=== PATIENT | female | born 1950 | race Caucasian/White ===

== ENCOUNTER 2016-11-04 18:45 | Emergency (ER) | payer MEDICARE, OTHER ==
[~2016-11-04] VITALS: Ht 149.9 cm; Wt 99.8 kg
[~2016-11-04 18:45] MED LIST: DOCU-94 PO; FLUT250M2 IN; IBUP800T24 PO; LISI40TA PO; MONT10TA23 PO; PAR20T PO; PROAIR; SIMV-13 PO
[2016-11-04 19:47] LABS: Basophils # (auto) 0 uL; Basophils % (auto) 0.3 % (0.0-2.0); Eosinophils # (auto) 0 uL; Eosinophils % (auto) 0.1 % (0.0-7.0); Hematocrit 41.5 % (36.0-46.0); Hemoglobin 13.2 g/dL (12.2-16.2); Lymphocytes # (auto) 1.4 uL; Lymphocytes % (auto) 19.7 % (10.0-50.0); Mean Corpuscular Hgb Conc. 31.8 g/dL (32.0-36.0); Monocytes # (auto) 0.6 uL; Neutrophils # (auto) 5.2 uL; Neutrophils % (auto) 71.9 % (37.0-80.0); Platelet Count (auto) 253 10^3/uL (140-450); Red Cell Distribution Width 17.8 % (11.6-16.0); White Blood Cell 7.2 10^3/uL (4.4-10.8)
[2016-11-04 20:05] LABS: Albumin 3.5 g/dL (3.4-5.0); BUN/Creatinine Ratio 22.2; Calcium 8.1 mg/dL (8.5-10.1); Magnesium 2.5 mg/dL (1.6-2.6)
[2016-11-04 20:08] LABS: Bilirubin, Total 0.1 mg/dL (0.2-1.0); Total Protein 6.7 g/dL (6.4-8.2)
[2016-11-05 02:15] VITALS: BP 112/44
== END 2016-11-05 02:59 | disposition home or self-care (01) ==
LOC: EDUNIT# 18:45 → EDBD 18:45 → ER 18:49
DX: R07.89 Other chest pain (principal); M79.602 Pain in left arm; I25.10 Atherosclerotic heart disease of native coronary artery without angina pectoris; J44.9 Chronic obstructive pulmonary disease, unspecified; I10 Essential (primary) hypertension; E11.9 Type 2 diabetes mellitus without complications; M19.90 Unspecified osteoarthritis, unspecified site; J45.909 Unspecified asthma, uncomplicated; F32.9 Major depressive disorder, single episode, unspecified; F41.9 Anxiety disorder, unspecified; E78.5 Hyperlipidemia, unspecified; Z90.49 Acquired absence of other specified parts of digestive tract; Z90.710 Acquired absence of both cervix and uterus; Z95.0 Presence of cardiac pacemaker; Z87.891 Personal history of nicotine dependence
CPT/HCPCS: 36415; 80053; 83735; 84484; 85025; 93005

== ENCOUNTER 2017-06-23 18:07 | Emergency (ER) | payer MEDICARE, MEDICAID ==
[~2017-06-23] VITALS: Ht 149.9 cm; Wt 115.7 kg
[2017-06-23 19:35] LABS: Basophils # (auto) 0 uL; Basophils % (auto) 0.3 % (0.0-2.0); CONDITION Y; DEFINITIVE SEE PRINTOUT; Eosinophils # (auto) 0 uL; Hematocrit 35.4 % (36.0-46.0); Hemoglobin 11.3 g/dL (12.2-16.2); Lymphocytes # (auto) 1.2 uL; Lymphocytes % (auto) 19.5 % (10.0-50.0); Mean Corpuscular Hemoglobin 26.6 pg (28.0-32.0); Mean Corpuscular Volume 83.1 fL (80.0-100.0); Mean Platelet Volume 7.8 fL (7.4-10.4); Monocytes # (auto) 0.6 uL; Monocytes % (auto) 9.6 % (0.0-12.0); Neutrophils # (auto) 4.5 uL; Neutrophils % (auto) 70.6 % (37.0-80.0); Platelet Count (auto) 310 10^3/uL (140-450); Red Cell Distribution Width 17.6 % (11.6-16.0); White Blood Cell 6.4 10^3/uL (4.4-10.8)
[2017-06-23 19:50] LABS: Partial Thromboplastin Time 26.9 sec (22.64-33.71); Prothrombin Time 10.9 sec (9.37-12.3)
[2017-06-23 19:53] LABS: Albumin 3.3 g/dL (3.4-5.0); Anion Gap 10 (5-15); Aspartate Aminotransferase 12 U/L (15-37); BUN/Creatinine Ratio 20.3; Blood Urea Nitrogen 16 mg/dL (7-18); Calcium 7.9 mg/dL (8.5-10.1); Carbon Dioxide 24 mmol/L (21-32); Chloride 110 mmol/L (98-107); GFR African American 94 mL/min; GFR Non-African American 77 mL/min; Glucose 112 mg/dL (74-106); Magnesium 2.4 mg/dL (1.6-2.6); Potassium 4.1 mmol/L (3.5-5.1); Sodium 144 mmol/L (136-145)
[2017-06-23 19:58] LABS: Alkaline Phosphatase 202 U/L (45-117); Bilirubin, Total 0.2 mg/dL (0.2-1.0); Total Protein 6.7 g/dL (6.4-8.2)
[2017-06-23 20:01] LABS: B-Type Natriuretic Peptide 19.44 pg/mL (0-100)
[2017-06-23 20:10] LABS: Temperature: 23.5 C (20.0-25.0)
[2017-06-23] MEDS ORDERED: MORPHINE SULFATE 4 MG/ML SYRG IV ONE (22:30)
[2017-06-23] MEDS ORDERED: ONDANSETRON HCL 4 MG/2 ML VIAL IV ONE (22:30)
[2017-06-24 02:17] VITALS: BP 135/75
[2017-06-26] MEDS ORDERED: OXY5T PO (11:26)
[2017-06-26] MEDS ORDERED: FAMO-12 PO (11:26)
[2017-06-26] MEDS ORDERED: MOMLQ PO (11:26)
[2017-06-26] MEDS ORDERED: RIVA10TA PO (11:26)
[2017-06-26] MEDS ORDERED: PHE100C PO (11:26)
[2017-06-26] MEDS ORDERED: METF-370 PO (11:26)
[2017-06-26] MEDS ORDERED: BIS10RS PR (11:26)
== END 2017-06-24 03:44 | disposition home or self-care (01) ==
LOC: EDBD 18:07 → ER 18:10
DX: R07.89 Other chest pain (principal); F41.9 Anxiety disorder, unspecified; M19.90 Unspecified osteoarthritis, unspecified site; J44.9 Chronic obstructive pulmonary disease, unspecified; E11.9 Type 2 diabetes mellitus without complications; E78.5 Hyperlipidemia, unspecified; I10 Essential (primary) hypertension; Z90.49 Acquired absence of other specified parts of digestive tract; Z95.1 Presence of aortocoronary bypass graft; I25.810 Atherosclerosis of coronary artery bypass graft(s) without angina pectoris; Z95.0 Presence of cardiac pacemaker
CPT/HCPCS: 36415; 71010; 80053; 83735; 83880; 84484; 85025; 85379; 85610; 85730; 93005; J2405

== ENCOUNTER 2017-07-09 04:41 | Emergency (ER) | payer MEDICARE, MEDICAID ==
[~2017-07-09] VITALS: Ht 149.9 cm; Wt 111.1 kg
[~2017-07-09 04:41] MED LIST changes: +BIS10RS PR; +FAMO-12 PO; +IBU600T PO; -IBUP800T24 PO; +METF-370 PO; +MOMLQ PO; +PHE100C PO; -PROAIR; +RIVA10TA PO
[2017-07-09 05:32] LABS: Basophils # (auto) 0 uL; Basophils % (auto) 0.4 % (0.0-2.0); CONDITION Y; DEFINITIVE SEE PRINTOUT; Eosinophils # (auto) 0 uL; Hematocrit 35.4 % (36.0-46.0); Hemoglobin 11.5 g/dL (12.2-16.2); Lymphocytes # (auto) 1.1 uL; Lymphocytes % (auto) 19.2 % (10.0-50.0); Mean Corpuscular Hemoglobin 26.6 pg (28.0-32.0); Mean Corpuscular Hgb Conc. 32.5 g/dL (32.0-36.0); Mean Corpuscular Volume 81.9 fL (80.0-100.0); Mean Platelet Volume 7.9 fL (7.4-10.4); Monocytes # (auto) 0.6 uL; Monocytes % (auto) 9.8 % (0.0-12.0); Neutrophils % (auto) 70.6 % (37.0-80.0); Platelet Count (auto) 303 10^3/uL (140-450); Red Cell Distribution Width 18.8 % (11.6-16.0); White Blood Cell 5.7 10^3/uL (4.4-10.8)
[2017-07-09 05:54] LABS: Albumin 3.3 g/dL (3.4-5.0); Anion Gap 10 (5-15); Aspartate Aminotransferase 17 U/L (15-37); BUN/Creatinine Ratio 21.4; Blood Urea Nitrogen 12 mg/dL (7-18); Calcium 8.3 mg/dL (8.5-10.1); Carbon Dioxide 25 mmol/L (21-32); Chloride 112 mmol/L (98-107); GFR African American 139 mL/min; GFR Non-African American 115 mL/min; Glucose 103 mg/dL (74-106); Potassium 3.7 mmol/L (3.5-5.1); Sodium 147 mmol/L (136-145)
[2017-07-09 05:59] LABS: Alkaline Phosphatase 196 U/L (45-117); Bilirubin, Total 0.2 mg/dL (0.2-1.0); Total Protein 6.5 g/dL (6.4-8.2)
[2017-07-09 06:02] LABS: B-Type Natriuretic Peptide 3.35 pg/mL (0-100)
[2017-07-09 06:10] LABS: Temperature: 21.3 C (20.0-25.0)
[2017-07-09] MEDS ORDERED: IOHEXOL 350 MG/ML 100ML IJ ONE (07:44)
[2017-07-09] MEDS ORDERED: CLINDAMYCIN 900MG IV 50 ML IV ONE (08:15)
[2017-07-09] MEDS ORDERED: PIPERACILLIN-TAZOB 3.375GM 100 ML IV ONE (08:15)
[2017-07-09 16:31] VITALS: BP 101/68
== END 2017-07-09 16:53 | disposition home or self-care (01) ==
LOC: ER 04:41 → EDBD 04:41 → EDUNIT# 04:41 → ER 16:53
DX: L03.115 Cellulitis of right lower limb (principal); E11.42 Type 2 diabetes mellitus with diabetic polyneuropathy; R79.1 Abnormal coagulation profile; I10 Essential (primary) hypertension; I25.10 Atherosclerotic heart disease of native coronary artery without angina pectoris; R06.02 Shortness of breath; Z95.1 Presence of aortocoronary bypass graft; Z90.49 Acquired absence of other specified parts of digestive tract; Z90.710 Acquired absence of both cervix and uterus; I25.2 Old myocardial infarction; Z79.01 Long term (current) use of anticoagulants
CPT/HCPCS: 36415; 51702; 71010; 71275; 80053; 83605; 83880; 84484; 85025; 85379; 87040; 93005; 93971; 96365; 96366; 96368; 99285; J2543; J3490; Q9967

== ENCOUNTER → 2017-08-26 | Outpatient (CLI) | payer MEDICARE, MEDICAID | LOC: Rad HDHVI 10:36 | PROVIDERS: ATTEND Internal Medicine Cardiovascular Disease | DX: I73.9 Peripheral vascular disease, unspecified (principal) | CPT/HCPCS: 93926 ==

== ENCOUNTER → 2017-08-27 | Outpatient (CLI) | payer MEDICARE, MEDICAID | END | disposition home or self-care (01) | LOC: Rad HDHVI 14:46 | PROVIDERS: ATTEND Internal Medicine Cardiovascular Disease | DX: R06.02 Shortness of breath (principal); I50.9 Heart failure, unspecified; J44.9 Chronic obstructive pulmonary disease, unspecified; Z95.1 Presence of aortocoronary bypass graft | CPT/HCPCS: 93306 ==

== ENCOUNTER 2017-09-07 07:52 | Emergency (ER) | payer MEDICARE, MEDICAID ==
[~2017-09-07] VITALS: Ht 149.9 cm; Wt 117.9 kg
[2017-09-07] MEDS ORDERED: ONDANSETRON HCL 4 MG/2 ML VIAL IM ONE (08:15)
[2017-09-07] MEDS ORDERED: HYDROmorphone HCL 2 MG/ML VL IM ONE (08:15)
[2017-09-07 09:54] VITALS: BP 122/63
== END 2017-09-07 09:35 | disposition home or self-care (01) ==
LOC: EDBD 07:52 → ER 07:52
DX: S16.1XXA Strain of muscle, fascia and tendon at neck level, initial encounter (principal); S09.90XA Unspecified injury of head, initial encounter; J44.9 Chronic obstructive pulmonary disease, unspecified; M19.90 Unspecified osteoarthritis, unspecified site; E11.9 Type 2 diabetes mellitus without complications; E78.5 Hyperlipidemia, unspecified; I25.2 Old myocardial infarction; Z79.899 Other long term (current) drug therapy; W50.1XXA Accidental kick by another person, initial encounter; Y93.89 Activity, other specified; Y99.8 Other external cause status; Y92.89 Other specified places as the place of occurrence of the external cause
CPT/HCPCS: 51702; 70450; 72125; 73560; 96372; 99284; J1170; J2405; J7030

== ENCOUNTER → 2017-09-08 | Outpatient (CLI) | payer MEDICARE, MEDICAID ==
[~2017-09-08] VITALS: Ht 149.9 cm; Wt 117.9 kg
[~2017-09-08] MED LIST changes: +ADENOSINE 90 MG/30 ML INJ IV ONE; +ADENOSINE 99 MG in GIVE UN-DILUTED 0 ML IV ONE
== END | disposition home or self-care (01) ==
LOC: Rad HDHVI 10:37
PROVIDERS: ATTEND Internal Medicine Cardiovascular Disease
DX: I10 Essential (primary) hypertension (principal); J44.9 Chronic obstructive pulmonary disease, unspecified; I73.9 Peripheral vascular disease, unspecified; E78.00 Pure hypercholesterolemia, unspecified; Z95.0 Presence of cardiac pacemaker
CPT/HCPCS: 78452; 93005; 96374; 96375; A9500; J0153

== ENCOUNTER → 2017-09-30 | Outpatient (CLI) | payer MEDICARE, MEDICAID ==
[~2017-09-30] MED LIST changes: -ADENOSINE 90 MG/30 ML INJ IV ONE; -ADENOSINE 99 MG in GIVE UN-DILUTED 0 ML IV ONE; +ALUM & MAG HYDROX-SIMETH LIQ(MAALOX) 30 ML ONE; +ALUM & MAG HYDROX-SIMETH LIQ(MAALOX) 30 ML PO ONE; +CEPH500C PO; +IOHEXOL 350 MG/ML 100ML IJ ONE; +KETOROLAC TROMETH 60MG/2ML VIAL IM ONE; +LIDOCAINE VISCOUS 2% 15ML UD ONE; +LORazepam 2MG/ML-1ML VIAL IV ONE; +LORazepam 2MG/ML-1ML VIAL ONE; +MET25T PO; +OXYC325T14 PO; +PRAV20TA3 PO; +SODIUM CHLORIDE 0.9% 1,000 ML IV SCH
[2017-09-30 11:00] LABS: Basophils # (auto) 0 uL; Basophils % (auto) 0.3 % (0.0-2.0); Eosinophils # (auto) 0 uL; Hematocrit 39.9 % (36.0-46.0); Hemoglobin 12.9 g/dL (12.2-16.2); Lymphocytes # (auto) 1.2 uL; Lymphocytes % (auto) 17.1 % (10.0-50.0); Mean Corpuscular Hemoglobin 27.9 pg (28.0-32.0); Mean Corpuscular Hgb Conc. 32.4 g/dL (32.0-36.0); Mean Corpuscular Volume 86.1 fL (80.0-100.0); Mean Platelet Volume 7.4 fL (6.9-10.8); Monocytes # (auto) 0.7 uL; Monocytes % (auto) 9.9 % (0.0-12.0); Neutrophils # (auto) 5.1 uL; Neutrophils % (auto) 72.7 % (37.0-80.0); Nucleated Red Blood Cells % 0.1 %; Platelet Count (auto) 240 10^3/uL (140-450); Red Cell Distribution Width 18.6 % (11.8-14.3)
[2017-09-30 11:19] LABS: Anion Gap 9 (5-15); BUN/Creatinine Ratio 21.2; Blood Urea Nitrogen 14 mg/dL (7-18); Calcium 8.7 mg/dL (8.5-10.1); Carbon Dioxide 23 mmol/L (21-32); Chloride 109 mmol/L (98-107); GFR African American 115 mL/min; GFR Non-African American 95 mL/min; Glucose 111 mg/dL (74-106); Potassium 4.2 mmol/L (3.5-5.1); Sodium 141 mmol/L (136-145)
[2017-09-30 16:11] VITALS: BP 116/66
[2017-09-30] MEDS: LIDOCAINE VISCOUS 2% 15ML UD MT PRN ×2 (17:01→17:02)
== END | disposition home or self-care (01) ==
LOC: CHF HDHVI 10:15
PROVIDERS: ATTEND Internal Medicine Cardiovascular Disease
DX: I67.2 Cerebral atherosclerosis (principal); I70.0 Atherosclerosis of aorta; I51.7 Cardiomegaly; I20.9 Angina pectoris, unspecified; D64.9 Anemia, unspecified; I10 Essential (primary) hypertension; Z95.0 Presence of cardiac pacemaker
CPT/HCPCS: 36415; 70450; 71020; 80048; 84484; 85025; 93005; 96360; 96361; 96372; 96375; G0463; J1885; J2060; 96374

== ENCOUNTER 2018-01-28 17:15 | Emergency (ER) | payer MEDICARE, MEDICAID ==
[~2018-01-28] VITALS: Ht 149.9 cm; Wt 116.1 kg
[~2018-01-28 17:15] MED LIST changes: -ALUM & MAG HYDROX-SIMETH LIQ(MAALOX) 30 ML ONE; -ALUM & MAG HYDROX-SIMETH LIQ(MAALOX) 30 ML PO ONE; +APIX5TAB PO; -BIS10RS PR; -DOCU-94 PO; -FLUT250M2 IN; -IBU600T PO; -IOHEXOL 350 MG/ML 100ML IJ ONE; -KETOROLAC TROMETH 60MG/2ML VIAL IM ONE; -LIDOCAINE VISCOUS 2% 15ML UD ONE; -LORazepam 2MG/ML-1ML VIAL IV ONE; -LORazepam 2MG/ML-1ML VIAL ONE; -METF-370 PO; -MOMLQ PO; -RIVA10TA PO; -SIMV-13 PO; -SODIUM CHLORIDE 0.9% 1,000 ML IV SCH
[2018-01-28 17:54] LABS: Basophils # (auto) 0.1 uL; Basophils % (auto) 1.1 % (0.0-2.0); Eosinophils # (auto) 0 uL; Hematocrit 43.9 % (36.0-46.0); Hemoglobin 14.6 g/dL (12.2-16.2); Lymphocytes # (auto) 1.6 uL; Lymphocytes % (auto) 23.7 % (10.0-50.0); Mean Corpuscular Hemoglobin 30.1 pg (28.0-32.0); Mean Corpuscular Hgb Conc. 33.3 g/dL (32.0-36.0); Mean Corpuscular Volume 90.4 fL (80.0-100.0); Monocytes # (auto) 0.5 uL; Monocytes % (auto) 7.6 % (0.0-12.0); Neutrophils # (auto) 4.5 uL; Neutrophils % (auto) 67.6 % (37.0-80.0); Nucleated Red Blood Cells % 0.2 %; Platelet Count (auto) 241 10^3/uL (140-450); Red Blood Cells 4.85 10^6/uL (4.0-5.20); Red Cell Distribution Width 14.7 % (11.8-14.3); White Blood Cell 6.7 10^3/uL (4.4-10.8)
[2018-01-28 18:08] LABS: Albumin 3.5 g/dL (3.4-5.0); Anion Gap 8 (5-15); BUN/Creatinine Ratio 18.9; Blood Urea Nitrogen 14 mg/dL (7-18); Calcium 8.6 mg/dL (8.5-10.1); Carbon Dioxide 22 mmol/L (21-32); Chloride 112 mmol/L (98-107); GFR African American 101 mL/min; GFR Non-African American 83 mL/min; Glucose 114 mg/dL (74-106); Magnesium 2.2 mg/dL (1.6-2.6); Potassium 4.3 mmol/L (3.5-5.1); Sodium 142 mmol/L (136-145)
[2018-01-28] MEDS ORDERED: MORPHINE SULFATE 4 MG/ML SYR/VIAL IV ONE (18:15)
[2018-01-28] MEDS ORDERED: ONDANSETRON HCL 4 MG/2 ML VIAL IV ONE (18:15)
[2018-01-28] MEDS ORDERED: ASPirin 81 mg TAB PO ONE (18:15)
[2018-01-28 18:21] LABS: Alanine Aminotransferase 40 U/L (13-56); Alkaline Phosphatase 196 U/L (45-117); Aspartate Aminotransferase 23 U/L (15-37); Bilirubin, Total 0.2 mg/dL (0.2-1.0); Total Protein 7.1 g/dL (6.4-8.2)
[2018-01-28 18:33] VITALS: BP 140/77
== END 2018-01-28 19:05 | disposition home or self-care (01) ==
LOC: ER 17:19
DX: F41.9 Anxiety disorder, unspecified (principal); R07.89 Other chest pain; E11.9 Type 2 diabetes mellitus without complications; F32.9 Major depressive disorder, single episode, unspecified; I11.0 Hypertensive heart disease with heart failure; I50.9 Heart failure, unspecified; I25.10 Atherosclerotic heart disease of native coronary artery without angina pectoris; I48.91 Unspecified atrial fibrillation; J44.9 Chronic obstructive pulmonary disease, unspecified; K21.9 Gastro-esophageal reflux disease without esophagitis; I21.9 Acute myocardial infarction, unspecified; Z86.73 Personal history of transient ischemic attack (TIA), and cerebral infarction without residual deficits; Z95.0 Presence of cardiac pacemaker; Z95.1 Presence of aortocoronary bypass graft; Z90.49 Acquired absence of other specified parts of digestive tract; Z90.710 Acquired absence of both cervix and uterus
CPT/HCPCS: 36415; 80053; 83735; 83880; 84484; 85025; 93005; 94761

== ENCOUNTER → 2018-02-01 | Outpatient (CLI) | payer MEDICARE, MEDICAID ==
[~2018-02-01] MED LIST changes: +IOHEXOL 350 MG/ML 100ML IJ ONE
[2018-02-01 09:10] VITALS: BP 125/78
[2018-02-01 09:55] VITALS: BP 119/56
== END | disposition home or self-care (01) ==
LOC: Rad HDHVI 08:59
PROVIDERS: ATTEND Internal Medicine Cardiovascular Disease
DX: I51.7 Cardiomegaly (principal); R91.8 Other nonspecific abnormal finding of lung field
CPT/HCPCS: 71275; 82565; G0463; Q9967

== ENCOUNTER 2018-03-20 19:25 | Inpatient (IN) | payer MEDICARE, MEDICAID ==
[~2018-03-20] VITALS: Ht 149.9 cm; Wt 115.9 kg
[~2018-03-20 19:25] MED LIST changes: -IOHEXOL 350 MG/ML 100ML IJ ONE
[2018-03-20] MEDS ORDERED: SODIUM CHLORIDE 0.9% 500 ML IVB ONE (20:23)
[2018-03-20 20:53] LABS: Basophils # (auto) 0 uL; Basophils % (auto) 0.4 % (0.0-2.0); Eosinophils # (auto) 0 uL; Eosinophils % (auto) 0.1 % (0.0-7.0); Hematocrit 45.5 % (36.0-46.0); Hemoglobin 15.7 g/dL (12.2-16.2); Lymphocytes # (auto) 1.2 uL; Lymphocytes % (auto) 16.6 % (10.0-50.0); Mean Corpuscular Hemoglobin 31.2 pg (28.0-32.0); Mean Corpuscular Hgb Conc. 34.5 g/dL (32.0-36.0); Mean Corpuscular Volume 90.3 fL (80.0-100.0); Monocytes # (auto) 0.5 uL; Monocytes % (auto) 6.8 % (0.0-12.0); Neutrophils # (auto) 5.5 uL; Neutrophils % (auto) 76.1 % (37.0-80.0); Platelet Count (auto) 218 10^3/uL (140-450); Red Blood Cells 5.04 10^6/uL (4.0-5.20); Red Cell Distribution Width 15.3 % (11.8-14.3); White Blood Cell 7.2 10^3/uL (4.4-10.8)
[2018-03-20 21:08] LABS: INR 0.99 (0.9-1.15); Partial Thromboplastin Time 25.8 sec (23.78-33.04); Prothrombin Time 10.6 sec (9.27-12.13)
[2018-03-20 21:10] LABS: Albumin 3.8 g/dL (3.4-5.0); Anion Gap 12 (5-15); Blood Urea Nitrogen 12 mg/dL (7-18); Calcium 8.9 mg/dL (8.5-10.1); Carbon Dioxide 24 mmol/L (21-32); Chloride 107 mmol/L (98-107); Glucose 115 mg/dL (74-106); Magnesium 2.4 mg/dL (1.6-2.6); Potassium 4.3 mmol/L (3.5-5.1); Sodium 143 mmol/L (136-145)
[2018-03-20 21:13] LABS: Alanine Aminotransferase 36 U/L (13-56); Aspartate Aminotransferase 26 U/L (15-37); BUN/Creatinine Ratio 17.1; GFR African American 107 mL/min; GFR Non-African American 89 mL/min
[2018-03-20 21:18] LABS: Alkaline Phosphatase 185 U/L (45-117); Bilirubin, Total 0.2 mg/dL (0.2-1.0); Total Protein 7.6 g/dL (6.4-8.2)
[2018-03-20 22:14] LABS: Urine Bacteria FEW /hpf (None Seen); Urine Blood Negative /uL (Negative); Urine Specific Gravity 1.019 (1.001-1.035); Urine WBC 11 /hpf (0 - 5)
[2018-03-20] MEDS ORDERED: ONDANSETRON HCL 4 MG/2 ML VIAL IV ONE (22:30)
[2018-03-20] MEDS ORDERED: ACETAMINOPHEN 325 MG TAB PO ONE (23:00)
[2018-03-20] MEDS ORDERED: ONDANSETRON HCL 4 MG/2 ML VIAL IV PRN (23:30)
[2018-03-20] MEDS ORDERED: NITROGLYCERIN 0.4 MG SL TAB SL PRN (23:30)
[2018-03-20] MEDS ORDERED: ACETAMINOPHEN 500 MG TAB PO PRN (23:30)
[2018-03-20] MEDS ORDERED: MORPHINE SULFATE 4 MG/ML SYR/VIAL IV PRN ×2 (23:30)
[2018-03-21] MEDS ORDERED: LORazepam 2MG/ML-1ML VIAL IV PRN (01:30)
[2018-03-21] MEDS ORDERED: MORPHINE SULF INJ 2 MG/ML SYRINGE 1ML IV PRN (02:15)
[2018-03-21] MEDS ORDERED: cefTRIAXone 1GM/10ml IVPUSH 10 ML IV ONE (04:00)
[2018-03-21 06:14] VITALS: BP 120/60
[2018-03-21 07:19] LABS: Basophils # (auto) 0 uL; Basophils % (auto) 0.4 % (0.0-2.0); Eosinophils # (auto) 0 uL; Eosinophils % (auto) 0.1 % (0.0-7.0); Hematocrit 41.4 % (36.0-46.0); Hemoglobin 13.9 g/dL (12.2-16.2); Lymphocytes # (auto) 1.5 uL; Lymphocytes % (auto) 26.8 % (10.0-50.0); Mean Corpuscular Hemoglobin 30.7 pg (28.0-32.0); Mean Corpuscular Hgb Conc. 33.6 g/dL (32.0-36.0); Mean Corpuscular Volume 91.2 fL (80.0-100.0); Monocytes # (auto) 0.5 uL; Monocytes % (auto) 9.5 % (0.0-12.0); Neutrophils # (auto) 3.6 uL; Neutrophils % (auto) 63.2 % (37.0-80.0); Platelet Count (auto) 178 10^3/uL (140-450); Red Blood Cells 4.54 10^6/uL (4.0-5.20); Red Cell Distribution Width 15.2 % (11.8-14.3); White Blood Cell 5.7 10^3/uL (4.4-10.8)
[2018-03-21 07:43] LABS: Calcium 8.1 mg/dL (8.5-10.1); Potassium 4.1 mmol/L (3.5-5.1)
[2018-03-21 09:00] VITALS: BP 96/60
[2018-03-21] MEDS: APIXABAN 2.5 MG TAB PO SCH ×2 (09:32→22:08)
[2018-03-21] MEDS: PHENYTOIN SODIUM 100 MG CAP PO SCH ×2 (09:33→22:08)
[2018-03-21] MEDS: LISINOPRIL 20 MG TAB PO SCH (09:33)
[2018-03-21 13:00] VITALS: BP 95/53
[2018-03-21] MEDS: HYDROcodone-ACET 5/325MG TAB PO PRN ×2 (13:27→20:25)
[2018-03-21 17:40] VITALS: BP 108/48
[2018-03-21 22:00] VITALS: BP 123/72
[2018-03-22 05:56] VITALS: BP 103/51
[2018-03-22 09:00] VITALS: BP 106/54
[2018-03-22] MEDS: APIXABAN 2.5 MG TAB PO SCH ×2 (09:19→22:37)
[2018-03-22] MEDS: cefTRIAXone 1GM/10ml IVPUSH 10 ML IV SCH (09:19)
[2018-03-22] MEDS: PHENYTOIN SODIUM 100 MG CAP PO SCH ×2 (09:19→22:37)
[2018-03-22] MEDS: LISINOPRIL 20 MG TAB PO SCH (09:22)
[2018-03-22 13:00] VITALS: BP 138/70
[2018-03-22] MEDS: HYDROcodone-ACET 5/325MG TAB PO PRN ×2 (14:44→22:45)
[2018-03-22 17:00] VITALS: BP 113/63
[2018-03-22 22:00] VITALS: BP 118/68
[2018-03-23 05:16] VITALS: BP 107/57
[2018-03-23 08:00] VITALS: BP 13/64
[2018-03-23 09:00] VITALS: BP 113/64
[2018-03-23] MEDS: PHENYTOIN SODIUM 100 MG CAP PO SCH ×2 (09:39→22:45)
[2018-03-23] MEDS: cefTRIAXone 1GM/10ml IVPUSH 10 ML IV SCH (09:39)
[2018-03-23] MEDS: APIXABAN 2.5 MG TAB PO SCH ×2 (09:39→22:46)
[2018-03-23] MEDS: LISINOPRIL 20 MG TAB PO SCH (09:41)
[2018-03-23] MEDS: HYDROcodone-ACET 5/325MG TAB PO PRN ×3 (09:41→23:43)
[2018-03-23 13:00] VITALS: BP 106/55
[2018-03-23 17:00] VITALS: BP 102/59
[2018-03-23 21:37] VITALS: BP 118/68
[2018-03-24 04:41] VITALS: BP 95/51
[2018-03-24 09:00] VITALS: BP 116/62
[2018-03-24] MEDS: PHENYTOIN SODIUM 100 MG CAP PO SCH ×2 (11:19→22:00)
[2018-03-24] MEDS: cefTRIAXone 1GM/10ml IVPUSH 10 ML IV SCH (11:19)
[2018-03-24] MEDS: APIXABAN 2.5 MG TAB PO SCH ×2 (11:20→22:00)
[2018-03-24] MEDS: LISINOPRIL 20 MG TAB PO SCH (11:20)
[2018-03-24] MEDS: HYDROcodone-ACET 5/325MG TAB PO PRN ×2 (12:30→22:01)
[2018-03-24 13:00] VITALS: BP 126/63
[2018-03-24 17:00] VITALS: BP 117/59
[2018-03-24 22:00] VITALS: BP 123/68
[2018-03-25 04:52] VITALS: BP 87/51
[2018-03-25 09:00] VITALS: BP 104/63
[2018-03-25] MEDS: APIXABAN 2.5 MG TAB PO SCH ×2 (09:45→21:53)
[2018-03-25] MEDS: cefTRIAXone 1GM/10ml IVPUSH 10 ML IV SCH (09:45)
[2018-03-25] MEDS: PHENYTOIN SODIUM 100 MG CAP PO SCH ×2 (09:45→21:54)
[2018-03-25] MEDS: LISINOPRIL 20 MG TAB PO SCH (09:46)
[2018-03-25 13:00] VITALS: BP 133/78
[2018-03-25 17:00] VITALS: BP 117/65
[2018-03-25] MEDS: HYDROcodone-ACET 5/325MG TAB PO PRN (21:54)
[2018-03-25 22:00] VITALS: BP 116/69
[2018-03-26 05:00] VITALS: BP 104/53
[2018-03-26 08:00] VITALS: BP 107/65
[2018-03-26 08:44] VITALS: BP 88/60
[2018-03-26] MEDS: PHENYTOIN SODIUM 100 MG CAP PO SCH ×2 (09:25→22:00)
[2018-03-26] MEDS: cefTRIAXone 1GM/10ml IVPUSH 10 ML IV SCH (09:25)
[2018-03-26] MEDS: APIXABAN 2.5 MG TAB PO SCH ×2 (09:25→22:00)
[2018-03-26] MEDS: LISINOPRIL 20 MG TAB PO SCH (09:26)
[2018-03-26] MEDS: HYDROcodone-ACET 5/325MG TAB PO PRN (09:44)
[2018-03-26 13:00] VITALS: BP 120/68
[2018-03-26 17:00] VITALS: BP 122/70
[2018-03-26 22:00] VITALS: BP 117/66
== END 2018-03-27 00:28 | DRG 292 ==
LOC: ER 19:25 → EDBD 19:25 → TELE 19:26 → TELE-EAST 23:51
PROVIDERS: ADMIT Nurse Practitioner Family; ATTEND Internal Medicine Cardiovascular Disease
PROC: 4B02XSZ Measurement of Cardiac Pacemaker, External Approach (ICD-10-PCS; principal; 2018-03-26)
DX: I11.0 Hypertensive heart disease with heart failure (principal); Z68.43 Body mass index [BMI] 50.0-59.9, adult; I49.5 Sick sinus syndrome; E86.9 Volume depletion, unspecified; I48.91 Unspecified atrial fibrillation; R56.9 Unspecified convulsions; E11.9 Type 2 diabetes mellitus without complications; E78.5 Hyperlipidemia, unspecified; I50.32 Chronic diastolic (congestive) heart failure; W01.0XXA Fall on same level from slipping, tripping and stumbling without subsequent striking against object, initial encounter; I95.1 Orthostatic hypotension; E66.9 Obesity, unspecified; I25.10 Atherosclerotic heart disease of native coronary artery without angina pectoris; F03.90 Unspecified dementia, unspecified severity, without behavioral disturbance, psychotic disturbance, mood disturbance, and anxiety; J44.9 Chronic obstructive pulmonary disease, unspecified; F32.9 Major depressive disorder, single episode, unspecified; Z95.0 Presence of cardiac pacemaker; K21.9 Gastro-esophageal reflux disease without esophagitis; M54.5 Low back pain; S33.9XXA Sprain of unspecified parts of lumbar spine and pelvis, initial encounter; R26.81 Unsteadiness on feet; F41.9 Anxiety disorder, unspecified; Z79.01 Long term (current) use of anticoagulants; Z82.0 Family history of epilepsy and other diseases of the nervous system; Z79.899 Other long term (current) drug therapy; Z82.49 Family history of ischemic heart disease and other diseases of the circulatory system; Z82.5 Family history of asthma and other chronic lower respiratory diseases; Z83.3 Family history of diabetes mellitus; Z86.711 Personal history of pulmonary embolism; Z86.73 Personal history of transient ischemic attack (TIA), and cerebral infarction without residual deficits; Z90.710 Acquired absence of both cervix and uterus; Z95.1 Presence of aortocoronary bypass graft; Z90.49 Acquired absence of other specified parts of digestive tract; Y93.89 Activity, other specified; Y92.091 Bathroom in other non-institutional residence as the place of occurrence of the external cause; Y99.8 Other external cause status
CPT/HCPCS: 36415; 51702; 70450; 71045; 72131; 72192; 80048; 80053; 80185; 81001; 83735; 83880; 84443; 84484; 85025; 85379; 85610; 85730; 87081; 93005; 94761; 96361; 96374; 97116; 97163; 97530; J2405

== ENCOUNTER 2018-03-27 20:23 | Emergency (ER) | payer MEDICARE, MEDICAID ==
[~2018-03-27] VITALS: Ht 152.4 cm; Wt 149.7 kg
[2018-03-27 20:51] VITALS: BP 125/87
[2018-03-27 21:11] LABS: Basophils # (auto) 0 uL; Basophils % (auto) 0.5 % (0.0-2.0); Eosinophils # (auto) 0 uL; Eosinophils % (auto) 0.1 % (0.0-7.0); Hematocrit 46.9 % (36.0-46.0); Lymphocytes # (auto) 0.9 uL; Lymphocytes % (auto) 12.7 % (10.0-50.0); Mean Corpuscular Hemoglobin 31.1 pg (28.0-32.0); Mean Corpuscular Hgb Conc. 34.1 g/dL (32.0-36.0); Mean Corpuscular Volume 91.2 fL (80.0-100.0); Monocytes # (auto) 0.4 uL; Monocytes % (auto) 5.6 % (0.0-12.0); Neutrophils # (auto) 5.8 uL; Neutrophils % (auto) 81.1 % (37.0-80.0); Platelet Count (auto) 226 10^3/uL (140-450); Red Blood Cells 5.15 10^6/uL (4.0-5.20); Red Cell Distribution Width 15.1 % (11.8-14.3); White Blood Cell 7.2 10^3/uL (4.4-10.8)
[2018-03-27 21:33] LABS: Alanine Aminotransferase 73 U/L (13-56); Albumin 3.8 g/dL (3.4-5.0); Alkaline Phosphatase 208 U/L (45-117); Anion Gap 8 (5-15); Aspartate Aminotransferase 47 U/L (15-37); BUN/Creatinine Ratio 14.7; Bilirubin, Total 0.4 mg/dL (0.2-1.0); Blood Urea Nitrogen 10 mg/dL (7-18); Carbon Dioxide 26 mmol/L (21-32); Chloride 107 mmol/L (98-107); GFR African American 111 mL/min; GFR Non-African American 92 mL/min; Glucose 160 mg/dL (74-106); Magnesium 2.5 mg/dL (1.6-2.6); Potassium 4.1 mmol/L (3.5-5.1); Sodium 141 mmol/L (136-145); Total Protein 7.5 g/dL (6.4-8.2)
[2018-03-27] MEDS ORDERED: PHENYTOIN SODIUM 100 MG CAP PO ONE (23:15)
== END 2018-03-28 00:09 | disposition home or self-care (01) ==
LOC: ER 20:23 → EDBD 20:23 → ER 03-28 00:09
DX: S09.90XA Unspecified injury of head, initial encounter (principal); I48.91 Unspecified atrial fibrillation; J44.9 Chronic obstructive pulmonary disease, unspecified; I11.0 Hypertensive heart disease with heart failure; I50.9 Heart failure, unspecified; I25.2 Old myocardial infarction; E11.9 Type 2 diabetes mellitus without complications; Z86.73 Personal history of transient ischemic attack (TIA), and cerebral infarction without residual deficits; Z90.49 Acquired absence of other specified parts of digestive tract; Z90.89 Acquired absence of other organs; Z95.0 Presence of cardiac pacemaker; X58.XXXA Exposure to other specified factors, initial encounter; Y93.89 Activity, other specified; Y99.8 Other external cause status; Y92.89 Other specified places as the place of occurrence of the external cause
CPT/HCPCS: 36415; 70450; 80053; 83735; 84484; 85025; 93005; 94761

== ENCOUNTER → 2018-04-13 | Outpatient (CLI) | payer MEDICARE, MEDICAID ==
[~2018-04-13] MED LIST changes: +KETOROLAC TROMETH 60MG/2ML VIAL IM ONE
[2018-04-13 13:29] VITALS: BP 113/80
[2018-04-13 15:18] VITALS: BP 132/75
[2018-04-13 16:11] LABS: Basophils # (auto) 0 uL; Basophils % (auto) 0.3 % (0.0-2.0); Eosinophils # (auto) 0 uL; Hemoglobin 14.2 g/dL (12.2-16.2); Lymphocytes # (auto) 1.4 uL; Mean Corpuscular Hemoglobin 30.9 pg (28.0-32.0); Mean Corpuscular Hgb Conc. 33.8 g/dL (32.0-36.0); Mean Corpuscular Volume 91.4 fL (80.0-100.0); Monocytes # (auto) 0.7 uL; Monocytes % (auto) 10.7 % (0.0-12.0); Neutrophils # (auto) 4.4 uL; Nucleated Red Blood Cells % 0.1 %; Platelet Count (auto) 223 10^3/uL (140-450); Red Cell Distribution Width 14.9 % (11.8-14.3); White Blood Cell 6.5 10^3/uL (4.4-10.8)
[2018-04-13 16:20] LABS: BUN/Creatinine Ratio 19.7; Calcium 8.6 mg/dL (8.5-10.1); Magnesium 2.9 mg/dL (1.6-2.6)
== END | disposition home or self-care (01) ==
LOC: Rad HDHVI 12:52
PROVIDERS: ATTEND Internal Medicine Cardiovascular Disease
DX: I11.0 Hypertensive heart disease with heart failure (principal); I50.32 Chronic diastolic (congestive) heart failure; D64.9 Anemia, unspecified; E83.40 Disorders of magnesium metabolism, unspecified; I48.0 Paroxysmal atrial fibrillation; I49.5 Sick sinus syndrome; I25.10 Atherosclerotic heart disease of native coronary artery without angina pectoris; E11.9 Type 2 diabetes mellitus without complications; R07.9 Chest pain, unspecified; M79.602 Pain in left arm; I25.2 Old myocardial infarction; J44.9 Chronic obstructive pulmonary disease, unspecified; E78.5 Hyperlipidemia, unspecified; F32.9 Major depressive disorder, single episode, unspecified; E66.9 Obesity, unspecified; Z79.899 Other long term (current) drug therapy; Z79.01 Long term (current) use of anticoagulants; Z68.43 Body mass index [BMI] 50.0-59.9, adult; Z86.73 Personal history of transient ischemic attack (TIA), and cerebral infarction without residual deficits; Z95.0 Presence of cardiac pacemaker; Z86.711 Personal history of pulmonary embolism; Z95.1 Presence of aortocoronary bypass graft; Z90.710 Acquired absence of both cervix and uterus; Z90.49 Acquired absence of other specified parts of digestive tract
CPT/HCPCS: 36415; 80048; 82306; 83735; 85025; 93005; 93306; 96372; G0463; J1885

== ENCOUNTER → 2019-09-09 | Outpatient (CLI) | payer MEDICARE, MEDICAID ==
[~2019-09-09] MED LIST changes: +ACET650T12 PO; -KETOROLAC TROMETH 60MG/2ML VIAL IM ONE; +POTA10TA51 PO
== END | disposition home or self-care (01) ==
LOC: Rad HDHVI 14:41
PROVIDERS: ATTEND Internal Medicine Cardiovascular Disease
DX: I20.0 Unstable angina (principal); R07.89 Other chest pain; J44.9 Chronic obstructive pulmonary disease, unspecified
CPT/HCPCS: 93306

== ENCOUNTER → 2020-03-29 | Outpatient (CLI) | payer MEDICARE, MEDICAID ==
[~2020-03-29] VITALS: Ht 149.9 cm; Wt 138.8 kg
[~2020-03-29] MED LIST changes: +ADENOSINE 117 MG in GIVE UN-DILUTED 0 ML IV ONE; +ADENOSINE 90 MG/30 ML INJ IV ONE
== END | disposition home or self-care (01) ==
LOC: Rad HDHVI 12:48
PROVIDERS: ATTEND Internal Medicine Cardiovascular Disease
DX: R07.9 Chest pain, unspecified (principal); I10 Essential (primary) hypertension; I25.2 Old myocardial infarction; E78.00 Pure hypercholesterolemia, unspecified; Z95.0 Presence of cardiac pacemaker; Z82.49 Family history of ischemic heart disease and other diseases of the circulatory system
CPT/HCPCS: 78452; 93005; 96374; 96375; A9500; J0153